=== PATIENT | female | born 1955 | race Caucasian/White ===

== ENCOUNTER 2020-06-04 08:54 | Outpatient (CLI) | payer OTHER | END 2020-06-04 08:56 | disposition home or self-care (01) | LOC: RX STUDY 08:54 | PROVIDERS: ATTEND General Practice | DX: R10.10 Upper abdominal pain, unspecified (principal) ==

== ENCOUNTER 2025-06-01 06:00 | Day surgery (SDC) | payer OTHER ==
[2025-05-26 07:17] VITALS: BP 159/74
[2025-05-26 07:28] LABS: BASO % 0.4 % (0.1-1.2); EOS # 0.40 (0.04-0.54); EOS % 5.7 % (0.7-7.0); LYMPH # 2.09 (1.18-3.74); LYMPH % 29.6 % (19.3-53.1); MEAN PLATELET VOLUME 10.80 fl (9.4-12.4); MONO # 0.46 (0.24-0.82); MONO % 6.5 % (4.7-12.5); NEUT # 4.07 (1.56-6.13); NEUT % 57.5 % (34.0-71.1); RED CELL DISTRIBUTION WIDTH 13.8 % (11.6-14.4)
[2025-05-26 07:29] LABS: URINE APPEARANCE Clear; URINE BACTERIA 161.9 uL (0.0-1933); URINE BILIRRUBIN Negative (NEGATIVE); URINE BLOOD Moderate; URINE CAST 1.75 uL (0.0-1.40); URINE COLOR Yellow; URINE EPITHELIAL CELLS 8.6 uL (0.0-38.8); URINE GLUCOSE Negative (NEGATIVE); URINE KETONE Negative (NEGATIVE); URINE LEUKOCYTE Negative; URINE NITRATE Negative; URINE PROTEIN >=1000 (NEGATIVE); URINE RBC 56.4 uL (0.0-20.8); URINE UROBILINOGEN 0.2 E.U./dl; URINE WBC 9.8 uL (0.0-23.2)
[2025-05-26 08:11] LABS: ALT/SGPT 17.0 U/L (12-78); AST/SGOT 15.0 U/L (15-37); BILIRUBIN TOTAL 0.29 mg/dL (0.3-1.2); BUN CREA RATIO 18.0 (7.0-25.0); CREATININE SERUM 0.9 mg/dL (0.55-1.02); GFR 62.26; GLOBULINA 2.9 G/DL (2.4-3.5); GLUCOSE FASTING 94.0 mg/dL (65-100); OSMOLALITY SERUM 295.0 MOSM/KG (275-295)
[2025-05-26 08:36] LABS: INR 0.96
[2025-05-26 09:08] LABS: RH POSITIVE
[~2025-06-01] VITALS: Ht 157.5 cm; Wt 122.5 kg
[~2025-06-01 06:00] MED LIST: LIPITOR40 MG PO; SYNTHROID75 MCG PO; TENORMIN100 M1 PO
[2025-06-01] MEDS ORDERED: POVIDONE-IODINE 118 ML BOTT TOP ONE (07:37)
[2025-06-01] MEDS ORDERED: ONDANSETRON HCL 2 MG/ML VIAL IV ONE (09:30)
[2025-06-01] MEDS ORDERED: KETOROLAC TROMETHAMINE 30 MG VIAL IV ONE (09:30)
[2025-06-01] MEDS ORDERED: KETOROLAC TROMETHAMINE 30 MG VIAL ONE (11:37)
== END 2025-06-01 13:25 | disposition home or self-care (01) ==
LOC: CIR.AMB 06:00
PROVIDERS: ATTEND Obstetrics & Gynecology
DX: N84.0 Polyp of corpus uteri (principal)